=== PATIENT | female | born 1985 | race African-American/Black ===

== ENCOUNTER 2021-10-08 19:36 | Emergency (ER) | payer OTHER ==
[2021-10-08 19:43] VITALS: BP 121/86; PULSE 88; TEMP 98.6; BMI 30.2
[2021-10-08] MEDS ORDERED: DIPHTH,PERTUSS(ACELL),TET 0.5 ML DISP.SYRIN IM ONE ×2 (20:20→20:37)
== END 2021-10-08 20:43 | disposition home or self-care (01) ==
LOC: JERFT 19:36 → JER 19:36 → JERFT 20:43
PROC: 0HQFXZZ Repair Right Hand Skin, External Approach (ICD-10-PCS; principal; 2021-10-08)
PROC: 3E0234Z Introduction of Serum, Toxoid and Vaccine into Muscle, Percutaneous Approach (ICD-10-PCS; 2021-10-08)
DX: S61.210A Laceration without foreign body of right index finger without damage to nail, initial encounter (principal)
CPT/HCPCS: 12001-25; 90471; 90715; 99284-25

== ENCOUNTER 2021-10-12 12:59 | Emergency (ER) | payer OTHER ==
[2021-10-12 13:17] VITALS: BP 117/86; PULSE 93; TEMP 98.5; BMI 30.2
[2021-10-12] MEDS ORDERED: ACETAMINOPHEN 500 MG TABLET (FP) PO ONE (14:31)
[2021-10-12] MEDS ORDERED: ACETAMINOPHEN 500 MG TABLET (FP) ONE (14:35)
== END 2021-10-12 15:32 | disposition home or self-care (01) ==
LOC: JER 12:59
DX: R07.0 Pain in throat (principal)
CPT/HCPCS: 87651; 99283-25